=== PATIENT | female | born 1965 ===

== ENCOUNTER 2021-01-03 06:15 | Day surgery (SDC) | payer OTHER ==
[~2021-01-03 06:15] MED LIST: CHILDREN'S ASPI81 MG PO; COZAAR100 MG PO; FENOFIBRATE160 MG PO; GLIPIZIDE XL10 MG PO; LIPITOR40 MG PO; LOVAZA1 GM PO; MAXIMUM D3325 MCG PO; METFORMIN HCL850 M1 PO; METOPROLOL SUC200 MG PO; TRULICITY1.5 MG/0.5
[2021-01-03] MEDS ORDERED: PERCOCET 5-3251 EACH PO (12:09)
== END 2021-01-03 14:40 | disposition home or self-care (01) ==
LOC: CIR.AMB 06:15
PROVIDERS: ATTEND Surgery
DX: E04.2 Nontoxic multinodular goiter (principal); Z20.822 Contact with and (suspected) exposure to COVID-19